=== PATIENT | male | born 1995 | race Hispanic/Latino ===

== ENCOUNTER → 2023-07-12 | Outpatient (REF) | payer OTHER ==
[2023-07-12 10:17] LABS: SEMEN APPEARANCE OPAQUE (OPAQUE); SEMEN VISCOSITY VISCOUS (LIQUID); SEMEN VOLUME 5.4 ml (2.0-5.0); SEMEN pH 8.5 (7.0-8.0); SPERM CONCENTRATION 41.9 M/ml (>=15.0); WBC CONCENTRATION <=1 M/ml (<=1 M/ml)
== END ==
LOC: M LAB REF 10:12
PROVIDERS: ATTEND Obstetrics & Gynecology
DX: Z31.41 Encounter for fertility testing (principal)

== ENCOUNTER 2023-09-27 09:09 | Emergency (ER) | payer OTHER ==
[~2023-09-27] VITALS: Ht 172.7 cm; Wt 97.0 kg
[2023-09-27] MEDS: KETOROLAC 30 MG/ML 1ML VIAL IM ONE (13:23)
[2023-09-27] MEDS: LIDOCAINE 5% (LIDODERM) PATCH TD ONE (13:23)
[2023-09-27 13:43] VITALS: BP 139/85; TEMP 98; O2SAT 98
== END 2023-09-27 13:45 | disposition home or self-care (01) ==
LOC: M ED 09:09
DX: M54.9 Dorsalgia, unspecified (principal)
CPT/HCPCS: 72125; 72128; 72131; 96372; 99283; J1885